=== PATIENT | male | born 1985 ===

== ENCOUNTER → 2017-01-04 | Outpatient (CLI) | payer SELFPAY ==
--- NOTE | 2017-01-05 07:55 | US ---
EXAMINATION TYPE: US thyroid st tissue head/neck DATE OF EXAM: 01/04/2017 COMPARISON: NONE CLINICAL HISTORY: E04.1 Thyroid nodule. Pt states abnormal labs, on thyroid medication x 6-7 months GLAND SIZE: Right Lobe: 6.1 x 2.9 x 3.6 cm Overall Parenchyma: heterogenous Left Lobe: 5.9 x 2.4 x 2.4 cm Overall Parenchyma: heterogeneous Isthmus Thickness: 0.4 cm Bilateral neck scanned, no evidence of lymphadenopathy. Bilateral thyroid gland enlarged and heteroge neous with increased vascularity IMPRESSION: Diffuse glandular heterogeneity and enlargement without discrete nodules. Correlate with thyroid func tion testing.
== END | disposition home or self-care (01) ==
LOC: RADUSWWP 15:44
PROVIDERS: ATTEND Family Medicine
DX: E04.9 Nontoxic goiter, unspecified (principal)
CPT/HCPCS: 76536

== ENCOUNTER → 2020-02-13 | Outpatient (CLI) | payer BC ==
--- NOTE | 2020-02-13 13:08 | US ---
EXAMINATION TYPE: US liver DATE OF EXAM: 02/13/2020 COMPARISON: NONE CLINICAL HISTORY: R94.5 Abnormal liver enzymes. Abnormal liver labs EXAM MEASUREMENTS: Liver Length: 16.4 cm Gallbladder Wall: 0.2 cm CBD: 0.3 cm Right Kidney: 9.8 x 5.4 x 5.1 cm Pancreas: Obscured by bowel gas Liver: Visualized portions appeared wnl Gallbladder: wnl Evidence for sonographic Miguel's sign: No CBD: wnl Right Kidney: wnl, lower pole gassed out IMPRESSION: 1. Unremarkable Right upper quadrant ultrasound.
== END | disposition home or self-care (01) ==
LOC: RADUSWWP 06:59
PROVIDERS: ATTEND Family Medicine
DX: R94.5 Abnormal results of liver function studies (principal)
CPT/HCPCS: 76705

== ENCOUNTER → 2023-12-23 | Outpatient (CLI) | payer BC ==
--- NOTE | 2023-12-23 17:37 | CT ---
EXAMINATION TYPE: CT abdomen pelvis w con DATE OF EXAM: 12/23/2023 5:01 PM COMPARISON: None. CLINICAL INDICATION: Male, 38 years old with history of K52.9 NONINFECTIVE GASTROENTERITIS AND COLITI S, Abdominal pain more toward LLQ x1 week. TECHNIQUE: Axial images were obtained from above the diaphragm to the pubic rami in the axial plane a t 5 mm thick sections. Reconstructed images are reviewed on the computer in the coronal plane. CONTRAST: 100ml mL of Isovue 300. Study performed with Oral Contrast DLP: 1301.7 mGycm, Automated exposure control for dose reduction was used. FINDINGS: Limited CT sections are obtained the lung bases. The lung bases are clear. CT ABDOMEN: Liver: Normal Spleen: Normal Pancreas: Normal Adrenal glands: The adrenal glands are normal. Gallbladder: Normal Kidneys: No masses are evident. No hydronephrosis is present. No cysts are present. Delayed images were obtained through the kidneys, which remain unremarkable. Aorta: Vascular calcification is within the aorta. Inferior vena cava: Normal. CT PELVIS: Loops of bowel within the abdomen and pelvis are normal. Normal diverticulosis is present without acu te diverticulitis Oral contrast extends to the cecum. No suspicious air-fluid levels are evident. No dilated fluid-filled loops of bowel are evident. No wall thickening is evident. There are loops of jasvir wel which are incompletely distended or lack oral contrast limiting their evaluation. Appendix: Normal as visualized. Urinary bladder: Normal. Genitourinary structures: Prostate is somewhat prominent Osseous structures: No suspicious lytic or sclerotic lesions. IMPRESSION: 1. No suspicious abnormalities of the left lower quadrant pain. 2. Mild diverticulosis [facility], , 12/23/2023 5:35 PM
== END | disposition home or self-care (01) ==
LOC: RADCTMAIN 14:57
PROVIDERS: ATTEND Family Medicine
DX: K52.9 Noninfective gastroenteritis and colitis, unspecified (principal); K57.30 Diverticulosis of large intestine without perforation or abscess without bleeding
CPT/HCPCS: 74177; Q9967